=== PATIENT | male | born 1960 | race Caucasian/White ===

== ENCOUNTER 2018-02-24 22:31 | Emergency (ER) | payer OTHER ==
--- NOTE | 2018-02-24 23:12 | EDPHY ---
H & P Stated Complaint: says ongoing nosebleed from R nare x 3 hrs Time Seen by Provider: 02/24/18 23:12 HPI/ROS: Chart made in Error. Please See ANTONIETA GRIFFIN Chart. 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, vascectomy, turbinate shrink, benign cerebral tumor - craniotomy, cerebral tumor removed - Social History Smoking Status: Never smoked Constitutional: Initial Vital Signs Temperature (C) 36.5 C 02/24/18 22:34 Heart Rate 78 02/24/18 22:34 Respiratory Rate 16 02/24/18 22:34 Blood Pressure 170/103 H 02/24/18 22:34 O2 Sat (%) 94 02/24/18 22:34 O2 Delivery Mode Room Air Allergies/Adverse Reactions: amoxicillin [Amoxicillin] Allergy (Verified 02/24/18 22:39) Home Medications: Medication Instructions Recorded Ibuprofen 200 - 400 mg PO DAILY PRN 10/20/15 Budesonide 90 Mcg INH 02/24/18 LaMICtal 02/24/18 Medical Decision Making - Data Points Medications Given: Discontinued Medications Tranexamic Acid 1,000 mg/ (Sodium Chloride) 50 mls @ 0 mls/hr IV ONCALL ONE PRN Reason: As Directed Stop: 02/25/18 01:34 Last Admin: 02/25/18 01:34 Dose: 50 mls Oxymetazoline HCl (Afrin Nasal [place]) 2 sprays EACHNARE BID NAN Stop: 08/24/18 08:59 Last Admin: 02/25/18 00:00 Dose: 2 spray Departure - Departure Disposition: Home, Routine, Self-Care Clinical Impression: Epistaxis Condition: Good Instructions: Nosebleed (ED) Additional Instructions: Do not blow your nose or remove the rhino rocket from your nose. Follow up with your [facility] this week. You have a 7.5 cm anterior posterior rhino rocket in your right nostril Referrals: Jhonny Donaldson MD [Medical Doctor] - As per Instructions (ENT on-call)
[2018-02-24] MEDS ORDERED: OXYMETAZOLINE 30 ML NASAL SPRAY ONE (23:34)
[2018-02-24] MEDS ORDERED: TRANEXAMIC ACID 1,000 MG/10 ML VIAL ONE (23:35)
[2018-02-24] MEDS ORDERED: SILVER NITRATE APPLICATOR 1 APPL TP ONE (23:36)
--- NOTE | 2018-02-24 23:54 | EDPHY ---
H & P Time Seen by Provider: 02/24/18 23:12 HPI/ROS: CHIEF COMPLAINT: Epistaxis HISTORY OF PRESENT ILLNESS: 57-year-old male presents to the emergency department with ongoing epistaxis over last 3 or 4 hr. The patient had a procedure done to his right anterior turbinates about 2 weeks ago by a [facility]. He states he has had intermittent nosebleeds over last 1 week and then this evening developed a nosebleed that would not stop bleeding. It is only bleeding from the right side. He also feels blood going down the back of his throat. He denies any known trauma. He denies pain in his chest or difficulty breathing. Denies dysphagia. REVIEW OF SYSTEMS: Constitutional: No fever, no chills. Eyes: No double or blurry vision. ENT: Epistaxis. No sore throat. Respiratory: No cough, no shortness of breath. Cardiac: No chest pain. Gastrointestinal: No abdominal pain, vomiting or diarrhea. Genitourinary: No dysuria. Musculoskeletal: No neck or back pain. Skin: No rashes. Neurological: No headache. Past Medical/Surgical History: Benign brain tumor with surgery, seizure disorder, prostatectomy, recent turbinates surgery. Social History: Smoking Status: Never smoked Physical Exam: General Appearance: Alert, no distress. Eyes: Pupils equal and round. Extraocular motions are all intact. Blood is noted in the right eye. ENT: Mouth: Mucous membranes moist. Blood noted in the posterior pharynx. Respiratory: No wheezing, rhonchi, or rales, lungs are clear to auscultation. Cardiovascular: Regular rate and rhythm. Gastrointestinal: Abdomen is soft and nontender, no masses, no rebound or guarding, bowel sounds normal. Neurological: Alert and oriented x 3, cranial nerves II through XII grossly intact Skin: Warm and dry, no rashes. Musculoskeletal: Nontender to palpate along the cervical, thoracic or lumbar spine. Neck is supple. Extremities: Full range of motion and no peripheral edema. Psychiatric: Patient is oriented X 3, there is no agitation. Constitutional: Initial Vital Signs Temperature (C) 36.5 C 02/24/18 22:34 Heart Rate 78 02/24/18 22:34 Respiratory Rate 16 02/24/18 22:34 Blood Pressure 170/103 H 02/24/18 22:34 O2 Sat (%) 94 02/24/18 22:34 O2 Delivery Mode Room Air Allergies/Adverse Reactions: amoxicillin [Amoxicillin] Allergy (Verified 02/24/18 22:39) Home Medications: Medication Instructions Recorded Ibuprofen 200 - 400 mg PO DAILY PRN 10/20/15 Budesonide 90 Mcg INH 02/24/18 LaMICtal 02/24/18 Medical Decision Making Procedures: Procedure: Epistaxis control. After verbal consent was obtained, TXA soaked gauze was placed in the right nostril. The anterior epistaxis was identified. The patient was treated with 7.5 anterior-posterior rhino rocket. Following the procedure the patient was re -examined and the bleeding was well controlled. The patient tolerated the procedure well. The procedure was performed by myself. ED Course/Re-evaluation: 57-year-old male who had recent turbinates surgery presents with epistaxis. Unable to visualize side of bleeding on examination. He did have blood in the posterior pharynx. A rhino rocket was placed. The patient tolerated this well. See procedure note. He was observed for over an hour in the emergency department with no recurring episodes of bleeding. I encouraged close follow- up with his ENT provider. He was comfortable with this plan. Differential Diagnosis: Including but not limited to anterior/posterior epistaxis, anemia, sinusitis, hypertensive emergency - Data Points Medications Given: Discontinued Medications Tranexamic Acid 1,000 mg/ (Sodium Chloride) 50 mls @ 0 mls/hr IV ONCALL ONE PRN Reason: As Directed Stop: 02/25/18 01:34 Last Admin: 02/25/18 01:34 Dose: 50 mls Oxymetazoline HCl (Afrin Nasal [place]) 2 sprays EACHNARE BID NAN Stop: 08/24/18 08:59 Last Admin: 02/25/18 00:00 Dose: 2 spray Departure - Departure Disposition: Home, Routine, Self-Care Clinical Impression: Epistaxis Condition: Good Instructions: Nosebleed (ED) Additional Instructions: Do not blow your nose or remove the rhino rocket from your nose. Follow up with your [facility] this week. You have a 7.5 cm anterior posterior rhino rocket in your right nostril Referrals: Jhonny Donaldson MD [Medical Doctor] - As per Instructions (ENT on-call)
[2018-02-25 01:09] VITALS: BP 162/102
[2018-02-25] MEDS ORDERED: TRANEXAMIC ACID 1,000 MG in NS (SYRINGE) 50 ML IV ONE (01:33)
[2018-02-25] MEDS ORDERED: OXYMETAZOLINE 30 ML NASAL SPRAY EACHNARE SCH (09:00)
== END 2018-02-25 01:00 | disposition home or self-care (01) ==
LOC: UNDOADMOB 23:21
PROC: 2Y41X5Z Packing of Nasal Region using Packing Material (ICD-10-PCS; principal; 2018-02-24)
DX: R04.0 Epistaxis (principal)